=== PATIENT | male | born 1960 | race Caucasian/White ===

== ENCOUNTER 2016-08-28 17:04 | Emergency (ER) | payer SELFPAY ==
[~2016-08-28] VITALS: Ht 172.7 cm; Wt 123.0 kg
[2016-08-28 18:30] LABS: ASPARTATE AMINO TRANSFERASE 12 U/L (15-37); BLOOD UREA NITROGEN 10 mg/dL (7-18)
[2016-08-28 18:31] LABS: IS PT STATUS REG ER OR PRE ER? YES
[2016-08-28] MEDS ORDERED: METOPROLOL TARTRATE 50 MG TABLET ONE (19:28)
[2016-08-28] MEDS ORDERED: METOPROLOL TARTRATE 25 MG TABLET PO ONE (19:30)
[2016-08-28 21:18] VITALS: BP 155/93
== END 2016-08-28 21:20 | disposition home or self-care (01) ==
LOC: ED 18:24
DX: I10 Essential (primary) hypertension (principal)
CPT/HCPCS: 36415; 71010; 80053; 83880; 84484; 85025; 93005